=== PATIENT | male | born 1940 | race Caucasian/White ===

== ENCOUNTER 2022-08-26 07:35 | Emergency (ER) | payer BC, OTHER ==
[~2022-08-26] VITALS: Ht 180.3 cm; Wt 79.4 kg
[2022-08-26 07:35] VITALS: BP_SYST 152
--- NOTE | 2022-08-26 07:40 | NUR ---
Patient to ER bed 3 to gown for evaluation. Side rails up. Report given to JAYLA MALAVE.
[2022-08-26] MEDS ORDERED: ACETAMINOPHEN 325 MG TABLET PO ONE (08:00)
--- NOTE | 2022-08-26 08:18 | NUR ---
pt LOULOU S/P fall Received report for Pt AOX4 VSS Able to stevenson needs known Pt taken to CT and back to room will continue to monitor
[2022-08-26 08:23] LABS: BASOPHILS # (AUTO) 0.1 K/uL (0.0-0.2); BASOPHILS % (AUTO) 0.7 % (0.0-2.0); HEMATOCRIT 30.9 % (36-54); HEMOGLOBIN 10.5 g/dL (14.0-18.0); LYMPHOCYTES # (AUTO) 1.5 K/uL (1.0-5.5); LYMPHOCYTES % (AUTO) 17.6 % (20.5-51.5); MEAN CORPUSCULAR HEMOGLOBIN 35 pg (27-31); MEAN CORPUSCULAR HGB CONC 34 % (32-36); MEAN CORPUSCULAR VOLUME 103 fL (79.0-98.0); MONOCYTES # (AUTO) 0.4 K/uL (0.0-1.0); MONOCYTES % (AUTO) 4.7 % (1.7-9.3); NEUTROPHILS # (AUTO) 5.4 K/uL (1.8-7.7); PLATELET COUNT (AUTO) 254 K/uL (130-430); RED BLOOD CELL COUNT(AUTO) 2.99 MIL/uL (4.2-6.2); RED CELL DISTRIBUTION WIDTH 13.8 % (9.0-15.0); WHITE BLOOD COUNT (AUTO) 8.4 K/uL (4.8-10.8)
[2022-08-26 08:36] LABS: ANION GAP 5 (5-15); CALCIUM 9.2 mg/dL (8.4-11.0); CHLORIDE 109 mmol/L (98-107); CREATININE 1.16 mg/dL (0.55-1.30); GLUCOSE 97 mg/dL (70-99); UREA NITROGEN, BLOOD 35 mg/dL (8-21)
[2022-08-26 08:45] LABS: ALANINE AMINOTRANSFERASE 25 U/L (12-78); ALBUMIN 3.3 g/dL (3.4-4.8); ASPARTATE AMINOTRANSFERASE 23 U/L (10-37); TOTAL BILIRUBIN 0.4 mg/dL (0.0-1.0)
[2022-08-26 08:50] LABS: PROTHROMBIN TIME 10.1 SECS (9.5-12.5)
[2022-08-26] MEDS ORDERED: NACL 0.9% 1,000 ML IV ONE (09:30)
[2022-08-26 10:40] LABS: BILIRUBIN,URINE NEGATIVE (NEGATIVE); BLOOD, URINE NEGATIVE (NEGATIVE); CLARITY/URINE CLEAR (CLEAR); COLOR,URINE YELLOW (YELLOW); GLUCOSE,URINE NEGATIVE (NEGATIVE); KETONES,URINE NEGATIVE (NEGATIVE); LEUKOCYTE ESTERASE ,URINE NEGATIVE (NEGATIVE); NITRITE, URINE NEGATIVE (NEGATIVE); PH,URINE 5.5 (5.0-8.0); PROTEIN URINE NEGATIVE (NEGATIVE); UROBILINOGEN,URINE 0.2 (0.2-1.0)
== END 2022-08-26 12:12 | disposition home or self-care (01) ==
LOC: SED 07:35
DX: S16.1XXA Strain of muscle, fascia and tendon at neck level, initial encounter (principal); S20.212A Contusion of left front wall of thorax, initial encounter; S09.90XA Unspecified injury of head, initial encounter; N17.0 Acute kidney failure with tubular necrosis; I10 Essential (primary) hypertension; Z79.899 Other long term (current) drug therapy; W06.XXXA Fall from bed, initial encounter; Y93.89 Activity, other specified; Y92.89 Other specified places as the place of occurrence of the external cause; Y99.8 Other external cause status
CPT/HCPCS: 99285; 70450; 96360; 71045; 80053; 83880; 85025; 85610; 85730; 84484; 36415; 93005; 72125; 76376; 81003; J7030

== ENCOUNTER 2022-09-25 04:09 | Emergency (ER) | payer BC, OTHER ==
[~2022-09-25] VITALS: Ht 175.3 cm; Wt 79.4 kg
[2022-09-25 04:45] VITALS: BP_SYST 174
[2022-09-25] MEDS ORDERED: DIPHTH,PERTUSS(ACELL),TET VAC 0.5 ML VIAL (Tdap) I.M. ONE (05:00)
[2022-09-25] MEDS ORDERED: LIDOCAINE 1% 10 MG/ML, 20 ML MDV INJ ONE (05:00)
[2022-09-25] MEDS ORDERED: BACI15OI13 TP (05:08)
[2022-09-25] MEDS ORDERED: BACITRACIN 1 GM OINT TP ONE (06:46)
[2022-09-25 08:30] VITALS: BP_SYST 167
== END 2022-09-25 10:44 | disposition home or self-care (01) ==
LOC: SED 04:09
DX: S01.01XA Laceration without foreign body of scalp, initial encounter (principal); I10 Essential (primary) hypertension; Z88.0 Allergy status to penicillin; Z79.899 Other long term (current) drug therapy; W18.30XA Fall on same level, unspecified, initial encounter; Y93.89 Activity, other specified; Y92.89 Other specified places as the place of occurrence of the external cause; Y99.8 Other external cause status
CPT/HCPCS: 70450-TC; 76376; 90715; 99284